=== PATIENT | male | born 1950 | race Caucasian/White ===

== ENCOUNTER → 2016-09-06 | Outpatient (CLI) | payer MEDICARE ==
[2016-09-06 07:52] LABS: Blood Urea Nitrogen 20 mg/dL (9-20); Non-African American GFR(MDRD) >60 (>60 ml/min/1.73 sqM)
--- NOTE | 2016-09-06 09:44 | CT ---
EXAMINATION TYPE: CT ChestAbdPelvis w con DATE OF EXAM: 09/06/2016 8:38 AM COMPARISON: Prior CT chest abdomen pelvis 22 September 2015 HISTORY: Follow up to colon CA CT DLP: 2457.1 mGycm Automated exposure control for dose reduction was used. CONTRAST: CT scan of the chest, abdomen and pelvis is performed with Oral Contrast and with IV Contrast, patien t injected with 100 ml mL of Omnipaque 300. FINDINGS: LUNGS: The lungs are grossly clear, there is no concerning parenchymal mass or nodule identified. T here is no pleural effusion or pneumothorax seen. The tracheobronchial tree is patent. MEDIASTINUM: There are no greater than 1 cm hilar or mediastinal lymph nodes. No pericardial effusi on is seen. Small hiatal hernia present. AORTA: No significant abnormality is seen. OTHER: Right-sided thyroid nodule is present. LIVER/GB: Liver shows low attenuation possibly due to fatty infiltration or hepatocellular disease. T he liver is enlarged. Gallbladder is unremarkable. PANCREAS: No significant abnormality is seen. SPLEEN: No significant abnormality is seen. ADRENALS: No significant abnormality is seen. KIDNEYS: Parapelvic cysts are present within the kidneys. REPRODUCTIVE ORGANS: There is a large hydrocele on the right. Prostate is enlarged. BOWEL: Postop changes are present within the pelvis. Retained fecal debris is present within the col on. No evident bowel obstruction. FREE AIR: No Free Air visible. ASCITES: None seen. RETROPERITONEAL ADENOPATHY: No retroperitoneal adenopathy is seen. LYMPH NODES: No greater than 1 cm abdominal or pelvic lymph nodes are appreciated. URINARY BLADDER: No significant abnormality is seen. PELVIC ADENOPATHY: None visualized. OSSEOUS STRUCTURES: No significant abnormality is seen. Postop change along the anterior abdominal w all. IMPRESSION: Postoperative changes. Recurrence is not evident. Additional findings above.
--- NOTE | 2016-09-06 09:50 | CT ---
EXAMINATION TYPE: CT soft tissue neck w con DATE OF EXAM: 09/06/2016 8:38 AM COMPARISON: Ultrasound thyroid 10 August 2016, prior CT 22 September 2015 HISTORY: Thyroid nodule, history of colon CA CT DLP: 2457.1 mGycm Automated exposure control for dose reduction was used. CONTRAST: CT scan of the neck is performed following with IV Contrast, patient injected with 100 ml mL of Omnip aque 300. Axial images are obtained, coronal and sagittal reformatted images are reviewed. FINDINGS: Airway: No gross abnormality seen. Parotid/submandibular glands: No gross abnormality seen. Carotid/Vascular Structures: Osseous Structures: Left maxillary sinus shows possible mucous retention cyst greater than right. Sku ll base is normal. Other: Heterogeneous posterior right lobe thyroid gland nodule is present measuring approximately 2.6 cm in greatest dimension, similar to prior exam. IMPRESSION: Right-sided thyroid nodule is dominant as described on previous report, difficult to ass ess any interval change with 2 different imaging modalities, findings felt stable compared to prior C T. Consider follow-up thyroid ultrasound.
== END | disposition home or self-care (01) ==
LOC: RADCTMAIN 07:20
PROVIDERS: ATTEND Internal Medicine Hematology & Oncology
DX: C18.9 Malignant neoplasm of colon, unspecified (principal); E04.1 Nontoxic single thyroid nodule; Z98.890 Other specified postprocedural states
CPT/HCPCS: 82565; 84520; 70491; 71260; 74177; 36415; Q9967

== ENCOUNTER 2017-11-06 07:45 | Day surgery (SDC) | payer MEDICARE ==
[~2017-11-06 07:45] MED LIST: LACTATED RINGERS 1,000 ML IV SCH; LIDOCAINE 1% 20 ML VIAL (10MG/ML) FOR IV START INTRADERMA PRN
[2017-11-06 08:16] VITALS: TEMP 98.2
[2017-11-06 08:21] LABS: Glucose,Whole Blood 155 mg/dL (75-99)
[2017-11-06] MEDS ORDERED: LIDOCAINE 1% INJ 10MG/ML (20 ML MDV) ONE (08:56)
[2017-11-06] MEDS ORDERED: PROPOFOL 10 MG/ML 20 ML VIAL IV ONE (08:56)
--- NOTE | 2017-11-06 09:25 | P.PCN ---
Date of Procedure: 11/06/17 Procedure(s) Performed: Procedure: Total colonoscopy. Preoperative diagnosis: History of rectal/lower sigmoid carcinoma S/P resection and adjuvant chemotherapy completed in 2007. Postoperative diagnosis: 1. Status post prior resection in the upper rectum/ lower sigmoid with no evidence of local recurrence or any evidence of polyps or cancer to the cecum. 2. Minimal sigmoid diverticulosis. Preparation: HalfLytely prep. Sedation: Was provided by anesthesia. Brief clinical history: The patient is a 67-year-old male who was diagnosed in 2006 to have low sigmoid/upper rectal cancer for which she underwent segmental resection which was followed with chemotherapy with the Xelox protocol that was completed in 2007. The patient at that time declined radiation adjuvant therapy. The patient has family history of colon cancer in his sister whose diagnosis was the reason that prompted him initially to have a colonoscopy while asymptomatic. His last colonoscopy was in July 2014. He is not having at this time any abdominal complaints, bleeding or anemia. Procedure: With the patient on his left lateral decubitus position and after informed consent and adequate sedation, the perianal area was inspected and it did not show any fissures or fistulas. There were no masses felt on digital rectal examination. The Olympus CFQ 160L video colonoscope was then inserted in the rectum in the usual fashion and advanced to the cecum. The preparation was less than ideal as there were some thick fecal secretions and fecal material and debris scattered in several areas. I lavaged thoroughly. The area of the anastomosis in the upper rectum/lower sigmoid area was noted and there was no local recurrence. There was an occasional diverticular orifice seen in the distal sigmoid as previously described but I saw no evidence of acute diverticulitis or strictures. No polyps or tumors were seen. I retroflexed the endoscope in the rectum before the endoscope was withdrawn. Disposition: The patient tolerated the procedure well. Plan: The patient was reassured. I will recommend repeat exam in 3 years. He will follow up with you as planned.
[2017-11-06 09:46] VITALS: BP 147/74; PULSE 68; RESP 20
== END 2017-11-06 10:04 | disposition home or self-care (01) ==
LOC: ORWHC2ENDO 07:45
DX: Z12.11 Encounter for screening for malignant neoplasm of colon (principal); K57.30 Diverticulosis of large intestine without perforation or abscess without bleeding; Z85.038 Personal history of other malignant neoplasm of large intestine; Z98.0 Intestinal bypass and anastomosis status; Z80.0 Family history of malignant neoplasm of digestive organs; E11.9 Type 2 diabetes mellitus without complications; Z79.84 Long term (current) use of oral hypoglycemic drugs
CPT/HCPCS: J2001; J2704; G0105; 45378

== ENCOUNTER → 2019-07-22 | Outpatient (CLI) | payer MEDICARE ==
[2019-07-22 16:35] LABS: Anisocytosis Slight; HCT 42.7 % (39.0-53.0); HGB 13.5 gm/dL (13.0-17.5); MCH 24.3 pg (25.0-35.0); MCHC 31.5 g/dL (31.0-37.0); MCV 77.1 fL (80.0-100.0); Mean Platelet Volume 8.9; Microcytosis Slight; Platelet Count 196 k/uL (150-450); RBC 5.54 m/uL (4.30-5.90); RDW 16.1 % (11.5-15.5); WBC 6.4 k/uL (3.8-10.6)
[2019-07-22 16:54] LABS: ALT 20 U/L (21-72); AST 17 U/L (17-59); African American GFR (CKD) >90 (>60 ml/min/1.73 sqM); Anion Gap 8 mmol/L; Blood Urea Nitrogen 21 mg/dL (9-20); Calcium 9.3 mg/dL (8.4-10.2); Carbon Dioxide 27 mmol/L (22-30); Chloride 104 mmol/L (98-107); Glucose 145 mg/dL (74-99); Non-African American GFR(CKD) >90 (>60 ml/min/1.73 sqM); Sodium 139 mmol/L (137-145)
[2019-07-22 17:09] LABS: T4, Free (Free Thyroxine) 1.08 ng/dL (0.78-2.19)
[2019-07-23 02:00] LABS: % Iron Saturation 5.43 (15.00-50.00); Ferritin 10.1 ng/mL (22.0-322.0); Iron 22 ug/dL (65-175); Total Iron Binding Capacity 405 ug/dL (228-460)
--- NOTE | 2019-07-23 11:18 | US ---
EXAMINATION TYPE: US scrotum with doppler. Grayscale and color Doppler Duplex imaging performed of kevin campos scrotum. DATE OF EXAM: 07/22/2019 COMPARISON: US CLINICAL HISTORY: N50.89 OTHER SPECIFIED DISORDERS OF THE MALE GENITAL. Enlarged scrotum x years per patient. EXAM MEASUREMENTS: TESTICLES: Right Testicle: 5.3 x 2.4 x 2.2 cm Left Testicle: 4.0 x 1.8 x 2.3 cm, located extreme left lateral scrotal sac near inguina. EPIDIDYMIS HEAD: Right Epididymis: not seen in enlarged hydrocele Left Epididymis: 0.7 x 1.0 x 0.8 cm Doppler was performed to assess for testicular vascularity; good bilateral color flow and waveforms a re seen. There is no evidence of testicular torsion. Presence of hydroceles: noted in right scrotal sac with mobile internal echoes and size approximatel y = 14.1 x 10.4 x 7.6cm Left hydrocele imaged = 6.0 x 1.1 x 1.9cm. Exophytic epididymal head cyst imaged = 0.5 x 0.6 x 0.6cm. IMPRESSION: 1. Complex large right hydrocele measuring up to 14.1 cm with mass effect on the testicle. 2. Benign left epididymal head cyst and small left uncomplicated hydrocele.
--- NOTE | 2019-07-23 12:46 | US ---
EXAMINATION TYPE: US thyroid st tissue head/neck DATE OF EXAM: 07/22/2019 COMPARISON: US 08/10/2016 CLINICAL HISTORY: E04.1 NONTOXIC SINGLE THYROID NODE. GLAND SIZE: Right Lobe: 4.9 x 3.1 x 2.9 cm Overall Parenchyma: heterogenous Left Lobe: 5.6 x 2.0 x 1.8 cm Overall Parenchyma: heterogeneous Isthmus Thickness: 0.2 cm NODULES RIGHT: # of nodules measured on right: 2 largest of multiple 1. 2.7 X 2.0 x 1.7 cm hypoechoic solid nodule at the lower pole with well-defined margins. This no dule is wider than tall and shows intranodular vascularity. Prior size: 2.0 x 1.7 x 1.6 cm 2. 1.9 X 1.4 x 1.2 cm hypoechoic mixed nodule at the lower medial pole with well-defined margins. T his nodule is wider than tall and shows intranodular vascularity. Prior size: 1.2 x 1.1 x 1.2 cm LEFT: # of nodules measured on left: 1 distinct nodule in heterogeneous gland 1. 0.5 X 0.6 x 0.4 cm hypoechoic mixed nodule at the mid pole with well-defined margins. This nodu le is wider than tall and shows no intranodular vascularity. Prior size: 0.8 x 0.4 x 0.9 cm ISTHMUS: # of nodules measured in the isthmus: 0 Bilateral neck scanned: no evidence of lymphadenopathy. IMPRESSION: 1. Interval growth of the dominant nodule 2.7 cm right thyroid nodule and interval growth the second nonone 0.9 cm thyroid nodule. Fine-needle aspiration could be considered if not previously performed. 2. No interval growth of the left thyroid subcentimeter nodule.
== END | disposition home or self-care (01) ==
LOC: RADUSWWP 14:58
PROVIDERS: ATTEND Family Medicine
DX: E04.2 Nontoxic multinodular goiter (principal); N43.3 Hydrocele, unspecified; N50.3 Cyst of epididymis; E11.65 Type 2 diabetes mellitus with hyperglycemia; D64.9 Anemia, unspecified; E55.9 Vitamin D deficiency, unspecified
CPT/HCPCS: 36415; 76536; 76870; 80048; 82306; 82728; 83036; 83540; 83550; 84439; 84443; 84450; 84460; 85027; 93975

== ENCOUNTER 2019-08-12 07:11 | Day surgery (SDC) | payer MEDICARE ==
[2019-08-08 13:07] VITALS: BMI 32.9
[2019-08-12 07:31] VITALS: RESP 16; TEMP 98.6
[2019-08-12 07:45] LABS: Glucose,Whole Blood 92 mg/dL (75-99)
[2019-08-12] MEDS ORDERED: PROPOFOL 10 MG/ML 20 ML VIAL IV ONE (07:51)
[2019-08-12] MEDS ORDERED: LIDOCAINE 1% INJ 10MG/ML (20 ML MDV) ONE (07:51)
--- NOTE | 2019-08-12 08:39 | P.PCN ---
Preoperative Diagnosis: Description of Procedure: Brief history: Patient is a pleasant scheduled for an elective upper endoscopy as well as colonoscopy as a part of evaluation of iron deficiency anemia and rectal cancer. The patient was diagnosed in 2006 with a cancer of the rectosigmoid which he subsequently underwent segmental resection and chemotherapy in 2007. Patient declined radiation therapy at that time. Patient does have a family history of colon cancer in his sister. Patient currently denying any acute complaints. He has been followed up for anemia. Procedure performed: Esophagogastroduodenoscopy biopsy and polypectomy with Endo Clip placement Colonoscopy Estimated blood loss: Minimal. Preoperative diagnosis: Iron deficiency anemia, rectal cancer, last colonoscopy in 2018 Anesthesia: MAC Procedure: After informed consent was obtained from the patient was brought into the endoscopy unit and IV sedation was administered by anesthesia under continuous monitoring. Initially upper endoscopy was done. The Olympus GF 190 video endoscope was inserted into the mouth and esophagus intubated without any difficulty and was gradually advanced into the stomach and duodenum and carefully examined. The bulb and second part of the duodenum appeared normal, with biopsies taken. The scope was then withdrawn into the stomach adequately insufflated with air and upon careful examination the antrum and body, cardia and fundus appeared grossly normal except for some mild punctate erythema in the antrum and body suggestive of mild gastritis with biopsies taken. There was also a pedunculated 15 mm polyp in the body of the stomach on the lesser curvature. Polyp was resected with cold snare and retrieved with a King net, with 2 Endo clips placed for hemostasis. The scope was then withdrawn into the esophagus. The GE junction was located at 38 cm to the incisors. It appeared regular with no erythema erosions or ulcerations. Rest of the esophagus appeared normal. Patient tolerated the procedure well. At this time the patient continued to remain sedation. Initial digital rectal examination was normal. Olympus CF 190 video colonoscope was then inserted into the rectum and gradually advanced to the cecum without any difficulty. Careful examination was performed as the scope was gradually being withdrawn. The prep was excellent. The cecum, ascending colon, transverse colon, descending colon, rectum appeared normal, with previously noted segmental resection of the rectosigmoid junction without any recurrence of disease. Mild sigmoid diverticulosis noted. Retroflexion was performed in the rectum and no lesions were noted. Patient tolerated the procedure well. Impression: 1. Mild gastritis antrum and body, biopsied. Duodenal biopsies. Gastric polyp resected with cold snare and retrieved with King net, with Endo Clip placement. 2. Normal-appearing colon, with anastomotic site from previous segmental resection of the rectosigmoid at the site of malignancy appearing normal with no recurrence at the site. Mild sigmoid diverticulosis. Recommendations: Findings of this examination were discussed with the patient as well as his family. Okay to resume diet. Okay to resume medication. Await pathology from biopsies and polypectomy. Recommend repeat colonoscopy in 3 years.
[2019-08-12 08:52] VITALS: BP 141/74; PULSE 66
== END 2019-08-12 09:20 | disposition home or self-care (01) ==
LOC: ORWHC2ENDO 07:11
PROVIDERS: ATTEND Internal Medicine
DX: K29.50 Unspecified chronic gastritis without bleeding (principal); A04.8 Other specified bacterial intestinal infections; K31.7 Polyp of stomach and duodenum; K25.9 Gastric ulcer, unspecified as acute or chronic, without hemorrhage or perforation; K57.30 Diverticulosis of large intestine without perforation or abscess without bleeding; D50.9 Iron deficiency anemia, unspecified; E11.9 Type 2 diabetes mellitus without complications; E04.9 Nontoxic goiter, unspecified; E66.9 Obesity, unspecified; Z68.32 Body mass index [BMI] 32.0-32.9, adult; Z85.048 Personal history of other malignant neoplasm of rectum, rectosigmoid junction, and anus; Z92.21 Personal history of antineoplastic chemotherapy; Z97.2 Presence of dental prosthetic device (complete) (partial); Z79.84 Long term (current) use of oral hypoglycemic drugs; Z79.899 Other long term (current) drug therapy; Z98.890 Other specified postprocedural states; Z98.42 Cataract extraction status, left eye; Z98.41 Cataract extraction status, right eye; Z98.0 Intestinal bypass and anastomosis status; Z80.0 Family history of malignant neoplasm of digestive organs
CPT/HCPCS: 88305; 88342; 45378; 43239; 43251; J2001; J2704; 43255

== ENCOUNTER 2019-08-22 12:18 | Day surgery (SDC) | payer MEDICARE ==
[2019-08-22 12:47] LABS: Glucose,Whole Blood 165 mg/dL (75-99)
[2019-08-22 12:57] VITALS: RESP 16; TEMP 98
[2019-08-22 14:12] VITALS: BP 116/76; PULSE 76
--- NOTE | 2019-08-22 14:17 | US ---
ULTRASOUND GUIDED FNA THYROID BIOPSY: CLINICAL HISTORY: Request for 2 right-sided thyroid nodule biopsies FINDINGS: The procedure was explained to the patient. The risks, complications, benefits and alternatives were discussed and any questions were answered. Informed consent was obtained. Patient was placed supin e on the ultrasound table and prepped and draped in the usual sterile fashion. Utilizing a 25 gauge needle, five passes were made into the two requested right thyroid nodules. Patient was stable throughout the procedure. Pathology is pending. All elements of maximal barrier technique were utilized. IMPRESSION: 1. Successful ultrasound guided FNA thyroid biopsy.
== END 2019-08-22 14:05 | disposition home or self-care (01) ==
LOC: RADPROMAIN 12:18
PROVIDERS: ATTEND Surgery
DX: E04.2 Nontoxic multinodular goiter (principal)
CPT/HCPCS: 10005; 10006; 88173; 88305

== ENCOUNTER → 2019-09-09 | Outpatient (CLI) | payer MEDICARE ==
[2019-09-09 13:26] LABS: African American GFR (CKD) >90 (>60 ml/min/1.73 sqM); Blood Urea Nitrogen 24 mg/dL (9-20); Non-African American GFR(CKD) >90 (>60 ml/min/1.73 sqM)
--- NOTE | 2019-09-09 15:18 | CT ---
EXAMINATION TYPE: CT pelvis w con DATE OF EXAM: 09/09/2019 COMPARISON: 09/06/2016 HISTORY: Right hydrocele. CT DLP: 988 mGycm CONTRAST: CT scan of the pelvis is performed with Oral Contrast and with IV Contrast, patient injected with 100 mL of Isovue M300. FINDINGS: KIDNEYS/BLADDER: Visualized portions of the kidneys reveal No hydronephrosis. No nephrolithiasis. No distinct renal mass. Urinary bladder grossly unremarkable. BOWEL: Normal appendix. Normal bowel caliber. No inflammation. GENITAL ORGANS: Large right-sided hydrocele noted measuring 11.5 x 11.8 x 13.8 cm. LYMPH NODES: No greater than 1cm pelvic lymph nodes are appreciated. AORTA: No significant abnormality. OSSEOUS STRUCTURES: No significant abnormality is seen. OTHER: No significant additional abnormality is seen. IMPRESSION: 1. Large right-sided hydrocele noted.
== END | disposition home or self-care (01) ==
LOC: RADCTMAIN 12:02
PROVIDERS: ATTEND Urology
DX: N43.3 Hydrocele, unspecified (principal)
CPT/HCPCS: 82565; 84520; 72193; 36415; Q9967 ×2

== ENCOUNTER → 2019-09-19 | Outpatient (CLI) | payer MEDICARE ==
[2019-09-19 13:52] LABS: Basophils # (A) 0.1 k/uL (0-0.2); Basophils % (A) 1 %; Eosinophils # (A) 0.2 k/uL (0-0.7); Eosinophils % (A) 4 %; HCT 44.1 % (39.0-53.0); HGB 13.7 gm/dL (13.0-17.5); Lymphocytes # (A) 1.6 k/uL (1.0-4.8); Lymphocytes % (A) 23 %; MCH 24.8 pg (25.0-35.0); Mean Platelet Volume 8.7; Monocytes # (A) 0.3 k/uL (0-1.0); Monocytes % (A) 4 %; Neutrophils # (A) 4.4 k/uL (1.3-7.7); Neutrophils % (A) 66 %; Platelet Count 219 k/uL (150-450); RBC 5.51 m/uL (4.30-5.90); RDW 14.8 % (11.5-15.5); WBC 6.7 k/uL (3.8-10.6)
[2019-09-19 14:00] LABS: African American GFR (CKD) >90 (>60 ml/min/1.73 sqM); Anion Gap 6 mmol/L; Blood Urea Nitrogen 19 mg/dL (9-20); Carbon Dioxide 31 mmol/L (22-30); Chloride 101 mmol/L (98-107); Non-African American GFR(CKD) 88 (>60 ml/min/1.73 sqM); Potassium 4.3 mmol/L (3.5-5.1); Sodium 138 mmol/L (137-145)
== END | disposition home or self-care (01) ==
LOC: LABPAT 12:37
PROVIDERS: ATTEND Urology
DX: Z01.818 Encounter for other preprocedural examination (principal); E10.9 Type 1 diabetes mellitus without complications; N43.3 Hydrocele, unspecified; R53.83 Other fatigue
CPT/HCPCS: 36415; 80051; 82565; 84520; 85025; 93005

== ENCOUNTER 2019-10-01 08:47 | Day surgery (SDC) | payer MEDICARE ==
[2019-09-26 15:03] VITALS: BMI 32.4
--- NOTE | 2019-09-30 20:31 | P.GSHP ---
History of Present Illness H&P Date: 09/30/19 69 yo male with a very large uncomfortable hydrocele for several years He comes for a surgical repair.He had a ct scan showing no evidence of hernia and a normal testicle The risks and complications have been discussed including infection bleeding loss of testicle pain and swelling - Constitutional Constitutional: Denies chills, Denies fever - EENT Eyes: denies blurred vision, denies pain Ears, nose, mouth and throat: Denies headache, Denies sore throat - Cardiovascular Cardiovascular: Denies chest pain, Denies shortness of breath - Respiratory Respiratory: Denies cough, Denies 7 - Gastrointestinal Gastrointestinal: Denies abdominal pain, Denies diarrhea, Denies nausea, Denies vomiting - Genitourinary (Female) Genitourinary: Denies dysuria, Denies hematuria - Genitourinary (Male) Genitourinary: Denies dysuria, Denies hematuria - Musculoskeletal Musculoskeletal: Denies myalgias - Integumentary Integumentary: Denies pruritus, Denies rash - Neurological Neurological: Denies numbness, Denies weakness - Psychiatric Psychiatric: Denies anxiety, Denies depression - Endocrine Endocrine: Denies fatigue, Denies weight change Past Medical History Past Medical History: Blood Disorder, Cancer, Diabetes Mellitus, Thyroid Disorder Additional Past Medical History / Comment(s): COLON CANCER. Low Iron. Enlarged thyroid. History of Any Multi-Drug Resistant Organisms: None Reported Past Surgical History: Bowel Resection, Hernia Repair Additional Past Surgical History / Comment(s): SURGERY TO REMOVE COLON CANCER. COLONOSCOPY. BILAT CATARACT SX; Umb Hernia Past Anesthesia/Blood Transfusion Reactions: No Reported Reaction Smoking Status: Never smoker - Past Family History Sister(s) Family Medical History: Cancer Medications and Allergies Home Medications Medication Instructions Recorded Confirmed Type Empagliflozin [Jardiance] 25 mg PO QAM 08/08/19 09/26/19 History Ferrous Sulfate [Feosol] 325 mg PO DAILY 08/08/19 09/26/19 History metFORMIN HCL [metFORMIN HCL ER 1,000 mg PO HS 08/08/19 09/26/19 History Osmotic] Allergies Allergy/AdvReac Type Severity Reaction Status Date / Time No Known Allergies Allergy Verified 09/26/19 14:55 Surgical - Exam - General well developed, well nourished, no distress - Eyes PERRL - ENT no hearing loss - Neck trachea midline - Respiratory normal expansion, normal respiratory effort - Cardiovascular Rhythm: regular - Abdomen Abdomen: soft, non tender - Genitourinary nl penis large left hydrocele Assessment and Plan Assessment: Impression: Left hydrocele, large Plan; Left hydrocelectomy
[~2019-10-01 08:47] MED LIST changes: +DEXAMETHASONE SOD PHOSPHATE 10 MG/ML 1 ML VIAL IV ONE; +HYDROmorphone 0.5 MG/0.5 ML SYRINGE IVP PRN; +LIDOCAINE 1% (10MG/ML) FOR IV START INTRADERMA PRN; -LIDOCAINE 1% 20 ML VIAL (10MG/ML) FOR IV START INTRADERMA PRN; +MIDAZOLAM 2 MG/2 ML VIAL IV PRN; +ONDANSETRON 4 MG/2 ML VIAL IVP ONE; +SCOPOLAMINE 1.5MG/72HR PATCH TRANSDERM ONE
[2019-10-01 09:50] LABS: Glucose,Whole Blood 147 mg/dL (75-99)
[2019-10-01 09:54] VITALS: TEMP 97.6
[2019-10-01] MEDS ORDERED: fentaNYL (PF) 50 MCG/ML 2 ML AMP ONE (10:08)
[2019-10-01] MEDS ORDERED: MIDAZOLAM 2 MG/2 ML VIAL ONE (10:08)
[2019-10-01] MEDS ORDERED: LIDOCAINE 1% INJ 10MG/ML (20 ML MDV) ONE (10:08)
[2019-10-01] MEDS ORDERED: PROPOFOL 10 MG/ML 20 ML VIAL IV ONE (10:08)
[2019-10-01] MEDS ORDERED: SUCCINYLCHOLINE CHLORIDE 100 MG/5 ML SYR IV ONE (10:08)
[2019-10-01] MEDS ORDERED: BUPIVACAINE (PF) 0.5% 30 ML VIAL SQ ONE (10:32)
--- NOTE | 2019-10-01 11:00 | P.OP ---
Date of Procedure: 10/01/19 Preoperative Diagnosis: Right hydrocele, large Postoperative Diagnosis: Same Procedure(s) Performed: Right hydrocelectomy, bottleneck Anesthesia: BRITTANY Surgeon: Dexter Fowler Pathology: other (Hydrocele sac) Condition: stable Disposition: PACU Indications for Procedure: The patient is 69. He has had a large right hydrocele for many years. Computed tomography scan shows no evidence of hernia. The testicles normal. He comes for right hydrocelectomy Description of Procedure: Patient is brought to the operating suite. He is given a general endotracheal anesthesia. He is prepped and draped sterilely. A midline scrotal incision is made. I dissect down through the tunica vaginalis which is opened. 800 mL of clear straw-colored fluid is drained. I evaginated the testicle out of the wound. I excised redundant hydrocele sac. I then oversew the edges of the hydrocele sac with a running 3-0 chromic. The testicle remained viable at the end of the procedure. The testicles replaced into the scrotum. Scrotum was closed in 2 layers of 3-0 chromic. Then of procedure 10 mL of half percent Marcaine plain block is administered. The patient awake and returned recovery in good condition. Blood loss is approximately 10 mL. He tolerated rate of the procedure well be discharged home upon recovery. He'll follow in the office in one week.
[2019-10-01 11:54] VITALS: RESP 18
[2019-10-01 12:08] VITALS: BP 130/72; PULSE 77
== END 2019-10-01 12:41 | disposition home or self-care (01) ==
LOC: OR 08:47
PROVIDERS: ATTEND Urology
DX: N43.3 Hydrocele, unspecified (principal); E11.9 Type 2 diabetes mellitus without complications; E04.9 Nontoxic goiter, unspecified; D75.9 Disease of blood and blood-forming organs, unspecified; Z79.84 Long term (current) use of oral hypoglycemic drugs; Z79.899 Other long term (current) drug therapy; Z85.038 Personal history of other malignant neoplasm of large intestine; Z90.49 Acquired absence of other specified parts of digestive tract; Z98.41 Cataract extraction status, right eye; Z98.42 Cataract extraction status, left eye; Z98.890 Other specified postprocedural states; Z80.9 Family history of malignant neoplasm, unspecified
CPT/HCPCS: 88302; 55040; J2250; J1100; J2405; J2001; J3010; J0330; J2704

== ENCOUNTER → 2020-04-01 | Outpatient (CLI) | payer MEDICARE ==
[2020-04-01 12:23] LABS: Basophils # (A) 0.1 k/uL (0-0.2); Basophils % (A) 1 %; Eosinophils # (A) 0.2 k/uL (0-0.7); Eosinophils % (A) 2 %; HCT 47.3 % (39.0-53.0); HGB 14.7 gm/dL (13.0-17.5); Lymphocytes # (A) 1.5 k/uL (1.0-4.8); Lymphocytes % (A) 22 %; MCH 26.4 pg (25.0-35.0); MCHC 31.1 g/dL (31.0-37.0); MCV 84.8 fL (80.0-100.0); Mean Platelet Volume 9.1; Monocytes # (A) 0.3 k/uL (0-1.0); Monocytes % (A) 5 %; Neutrophils # (A) 4.7 k/uL (1.3-7.7); Neutrophils % (A) 69 %; Platelet Count 168 k/uL (150-450); RBC 5.58 m/uL (4.30-5.90); RDW 14.1 % (11.5-15.5); WBC 6.9 k/uL (3.8-10.6)
[2020-04-01 18:39] LABS: % Iron Saturation 20.31 (15.00-50.00); Chol/HDL Ratio 2.62; LDL Cholesterol,Calculated 75.2 mg/dL (0.0-131.0); VLDL Calculation 26.8 mg/dL (5.00-40.00)
[2020-04-01 18:48] LABS: Prostate Specific Antigen 0.9 ng/mL (0.0-4.5)
[2020-04-01 19:40] LABS: Ferritin 8.1 ng/mL (22.0-322.0)
== END | disposition home or self-care (01) ==
LOC: LABWHC1 09:51
PROVIDERS: ATTEND Family Medicine
DX: Z00.01 Encounter for general adult medical examination with abnormal findings (principal)
CPT/HCPCS: 36415; 80061; 82306; 82728; 83540; 83550; 84153; 85025

== ENCOUNTER → 2022-01-13 | Outpatient (CLI) | payer MEDICARE ==
--- NOTE | 2022-01-13 14:38 | US ---
EXAMINATION TYPE: US thyroid st tissue head/neck DATE OF EXAM: 01/13/2022 COMPARISON: NONE CLINICAL HISTORY: E04.1 THYROID NODULE. follow up thyroid nodules GLAND SIZE: Right Lobe: 5.7 x 2.6 x 2.3 cm Overall Parenchyma: heterogenous Left Lobe: 6.0 x 2.2 x 2.2 cm Overall Parenchyma: heterogeneous Isthmus Thickness: 0.3 cm NODULES RIGHT: # of nodules measured on right: 2 1. 2.5 X 1.9 x 2.0 cm, lower , solid or almost completely solid, hypoechoic nodule, which is wider than tall, with smooth margins, without echogenic foci. TR 4 Prior size: 2.7 x 2.0 x 1.7 cm 2. 1.3 X 1.2 x 1.2 cm, lower , solid or almost completely solid, isoechoic nodule, which is wider t jackson tall, with smooth margins, without echogenic foci. Prior size: 1.9 x 1.4 x 1.2 cm LEFT: # of nodules measured on left: 1 1. 0.6 X 0.4 x 0.9 cm, mid , mixed cystic and solid, hypoechoic nodule, which is wider than tall, w ith smooth margins, without echogenic foci. Prior size: 0.5 x 0.6 x 0.4 cm ISTHMUS: # of nodules measured in the isthmus: 0 IMPRESSION: Moderately suspicious nodule right lobe thyroid. This appears to been biopsied 08/22/2019. 2017 ACR TI-RADS LEVEL: *Highest TI-RADS level nodule reported
== END | disposition home or self-care (01) ==
LOC: RADUSWWP 13:35
PROVIDERS: ATTEND Internal Medicine Hematology & Oncology
DX: E04.1 Nontoxic single thyroid nodule (principal)
CPT/HCPCS: 76536

== ENCOUNTER 2022-01-17 07:31 | Day surgery (SDC) | payer MEDICARE ==
[2022-01-13 11:34] VITALS: BMI 33.8
[~2022-01-17 07:31] MED LIST changes: -DEXAMETHASONE SOD PHOSPHATE 10 MG/ML 1 ML VIAL IV ONE; -HYDROmorphone 0.5 MG/0.5 ML SYRINGE IVP PRN; -MIDAZOLAM 2 MG/2 ML VIAL IV PRN; -ONDANSETRON 4 MG/2 ML VIAL IVP ONE; -SCOPOLAMINE 1.5MG/72HR PATCH TRANSDERM ONE
[2022-01-17 08:05] VITALS: TEMP 97.4
[2022-01-17 08:14] LABS: Glucose,Whole Blood 123 mg/dL (75-99)
[2022-01-17] MEDS ORDERED: PROPOFOL 10 MG/ML 20 ML VIAL IV ONE (08:33)
--- NOTE | 2022-01-17 08:50 | P.GSHP ---
History of Present Illness H&P Date: 01/17/22 Chief Complaint: HISTORY OF RECTAL CANCER, SCREENING 71-year-old male here today for colonoscopy. Patient with history of rectal cancer in 2006. Doing well this time. No bowel complaints. He is unsure when his last colonoscopy was. Past Medical History Past Medical History: Blood Disorder, Cancer, Diabetes Mellitus, Thyroid Disorder Additional Past Medical History / Comment(s): HX COLON CANCER, 17 yrs ago. Low Iron. Enlarged thyroid. History of Any Multi-Drug Resistant Organisms: None Reported Past Surgical History: Bowel Resection, Hernia Repair Additional Past Surgical History / Comment(s): SURGERY TO REMOVE COLON CANCER, COLONOSCOPIES, BILATERAL CATARACT SURGERY, Umbilical Hernia Repair. Past Anesthesia/Blood Transfusion Reactions: No Reported Reaction Past Psychological History: No Psychological Hx Reported Smoking Status: Never smoker Past Alcohol Use History: Occasional Past Drug Use History: None Reported - Past Family History Sister(s) Family Medical History: Cancer Medications and Allergies Home Medications Medication Instructions Recorded Confirmed Type Empagliflozin [Jardiance] 10 mg PO DAILY 01/13/22 01/17/22 History metFORMIN HCL [Glucophage] 500 mg PO BID 01/13/22 01/17/22 History Allergies Allergy/AdvReac Type Severity Reaction Status Date / Time No Known Allergies Allergy Verified 01/17/22 08:05 Surgical - Exam Vital Signs Temp Pulse Resp BP Pulse Ox 97.4 F L 69 18 168/77 97 01/17/22 08:04 01/17/22 08:04 01/17/22 08:04 01/17/22 08:04 01/17/22 08:04 Physical exam: General: Well-developed, well-nourished HEENT: Normocephalic, sclerae nonicteric Abdomen: Nontender, nondistended Extremities: No edema Neuro: Alert and oriented Results - Labs Abnormal Lab Results - Last 24 Hours (Table) 01/17/22 Range/Units 08:12 POC Glucose (mg/dL) 123 H (75-99) mg/dL Assessment and Plan (1) Colon cancer screening Narrative/Plan: 71-year-old male with history of rectal cancer. We'll proceed with screening colonoscopy at this time. Current Visit: Yes Status: Acute Code(s): Z12.11 - ENCOUNTER FOR SCREENING FOR MALIGNANT NEOPLASM OF COLON SNOMED Code(s): 900902716
--- NOTE | 2022-01-17 08:51 | P.PCN ---
Date of Procedure: 01/17/22 Procedure(s) Performed: PREOPERATIVE DIAGNOSIS: Colon cancer screening with history of rectal cancer POSTOPERATIVE DIAGNOSIS: Normal exam PROCEDURE: Colonoscopy ANESTHESIA: MAC SURGEON: Beni Hussein M.D. SPECIMENS: None ENDOSCOPIC PROCEDURE: The patient was placed on the endoscopy table in the left decubitus position. The Olympus colonoscope was inserted into the anus and passed under direct visualization to the base of the cecum. The appendiceal orifice was visualized. From that point the scope was slowly withdrawn inspecting all surfaces carefully. There were no neoplastic inflammatory or polypoid lesions throughout the cecum, ascending, transverse, descending, and rectum. The coloproctostomy was widely patent. There was noted diverticulosis seen. The prep was excellent. Digital rectal examination was normal. The patient was taken to the recovery room in stable condition per anesthesia guidelines. RECOMMENDATIONS: Resume diet. Repeat colonoscopy 5 years.
[2022-01-17 09:12] VITALS: BP 155/63; PULSE 57; RESP 17
[2022-01-17 09:30] LABS: Glucose,Whole Blood 118 mg/dL (75-99)
== END 2022-01-17 09:45 | disposition home or self-care (01) ==
LOC: ORWHC2ENDO 07:31
PROVIDERS: ATTEND Surgery
DX: Z85.048 Personal history of other malignant neoplasm of rectum, rectosigmoid junction, and anus (principal); K57.30 Diverticulosis of large intestine without perforation or abscess without bleeding; E11.9 Type 2 diabetes mellitus without complications; Z79.84 Long term (current) use of oral hypoglycemic drugs
CPT/HCPCS: 45378; J2704

== ENCOUNTER → 2022-07-05 | Outpatient (CLI) | payer MEDICARE ==
[2022-07-05 15:57] LABS: Basophils # (A) 0.07 X 10*3/uL (0.00-0.10); Basophils % (A) 1.3 %; Eosinophils # (A) 0.17 X 10*3/uL (0.04-0.35); Eosinophils % (A) 3.3 %; HCT 46.9 % (39.6-50.0); HGB 15.3 g/dL (13.0-17.0); Immature Grans, Automated 0.2 %; Lymphocytes # (A) 1.66 X 10*3/uL (0.90-5.00); Lymphocytes % (A) 31.8 %; MCH 27.1 pg (27.0-32.0); MCHC 32.6 g/dL (32.0-37.0); Mean Platelet Volume 12.2 fL (9.5-12.2); Monocytes % (A) 7.7 %; NRBC Per 100 WBC 0 /100 WBCS (0.0-0.0); Neutrophils # (A) 2.91 X 10*3/uL (1.80-7.70); Neutrophils % (A) 55.7 %; Platelet Count 175 X 10*3/uL (140-440); RBC 5.65 X 10*6/uL (4.40-5.60); RDW 13.2 % (11.5-14.5); WBC 5.22 X 10*3/uL (4.50-10.00)
[2022-07-05 18:25] LABS: ALT 24 U/L (10-49); AST 28 U/L (14-35); African American GFR (CKD) 101.7 (60.0-200.0); BUN/Creat Ratio 20.85 Ratio (12.00-20.00); Blood Urea Nitrogen 17.7 mg/dL (9.0-27.0); Calcium 9.3 mg/dL (8.7-10.3); Carbon Dioxide 26.1 mmol/L (20.0-27.5); Chloride 103 mmol/L (96-109); Chol/HDL Ratio 2.64 Ratio; Glucose 140 mg/dL (70-110); Iron 89 ug/dL (65-175); LDL Cholesterol,Calculated 86.3 mg/dL (0.0-131.0); Non-African American GFR(CKD) 87.7 (60.0-200.0); Potassium 4.1 mmol/L (3.5-5.5); Sodium 141 mmol/L (135-145)
== END | disposition home or self-care (01) ==
LOC: LABWHC1 11:12
PROVIDERS: ATTEND Family Medicine
DX: E11.65 Type 2 diabetes mellitus with hyperglycemia (principal); D64.9 Anemia, unspecified; E55.9 Vitamin D deficiency, unspecified
CPT/HCPCS: 36415; 80048; 80061; 82306; 83036; 83540; 84450; 84460; 85025

== ENCOUNTER → 2023-02-02 | Outpatient (CLI) | payer MEDICARE ==
[2023-02-02 15:49] LABS: Basophils # (A) 0.06 X 10*3/uL (0.00-0.10); Basophils % (A) 1.4 %; Eosinophils # (A) 0.15 X 10*3/uL (0.04-0.35); Eosinophils % (A) 3.5 %; HCT 47.7 % (39.6-50.0); HGB 15.3 d/dL (12.0-15.0); Lymphocytes # (A) 1.44 X 10*3/uL (0.90-5.00); Lymphocytes % (A) 33.8 %; MCH 27.2 pg (27.0-32.0); MCHC 32.1 d/dL (32.0-37.0); MCV 84.9 FL (80.0-97.0); Mean Platelet Volume 12.4 FL (9.5-12.2); Monocytes # (A) 0.34 X 10*3/uL (0.20-1.00); NRBC Per 100 WBC 0 X 10*3/uL (0.00-0.01); Neutrophils # (A) 2.26 X 10*3/uL (1.80-7.70); Neutrophils % (A) 53.1 %; Platelet Count 159 X 10*3/uL (140-440); RBC 5.62 X 10*6/uL (4.40-5.60); RDW 13.7 % (11.5-14.5); WBC 4.26 X 10*3/uL (4.50-10.00)
[2023-02-02 15:56] LABS: ALT 20 U/L (10-49); AST 17 U/L (14-35); Albumin 4.5 d/dL (3.8-4.9); Albumin/Globulin Ratio 1.96 Ratio (1.60-3.17); Alkaline Phosphatase 58 U/L (41-126); Blood Urea Nitrogen 16.4 mg/dL (9.0-27.0); Calcium 9.4 mg/dL (8.7-10.3); Carbon Dioxide 26.3 mmol/L (21.6-31.8); Chloride 103 mmol/L (96-109); Chol/HDL Ratio 2.47 Ratio; Globulin 2.3 d/dL (1.6-3.3); Glucose 131 mg/dL (70-110); LDL Cholesterol,Calculated 76.7 mg/dL (0.0-131.0); Potassium 4.3 mmol/L (3.5-5.5); Sodium 142 mmol/L (135-145); Total Bilirubin 0.5 mg/dL (0.3-1.2); Total Protein 6.8 d/dL (6.2-8.2); VLDL Calculation 18.02 mg/dL (5.00-40.00)
[2023-02-02 16:19] LABS: Appearance,Urine Clear (Clear); Bilirubin,Urine Negative (Negative); Blood,Urine Negative (Negative); Color,Urine Yellow (Yellow); Ketones,Urine Trace (Negative); Nitrite,Urine Negative (Negative); Specific Gravity,Urine >1.035 (1.001-1.030); Urobilinogen,Urine 0.2
[2023-02-02 18:31] LABS: Urine Creatinine 94.2 mg/dL (39.0-259.0)
== END | disposition home or self-care (01) ==
LOC: LABWHC1 08:45
PROVIDERS: ATTEND Family Medicine
DX: Z12.5 Encounter for screening for malignant neoplasm of prostate (principal); E11.65 Type 2 diabetes mellitus with hyperglycemia; E55.9 Vitamin D deficiency, unspecified; D64.9 Anemia, unspecified
CPT/HCPCS: 80061; 80053; 85025; 81003; 82306; 82043; 82570; 83036; 36415; G0103

== ENCOUNTER 2023-12-16 14:53 | Emergency (ER) | payer MEDICARE ==
[2023-12-16 15:06] VITALS: TEMP 97.7
--- NOTE | 2023-12-16 15:16 | ED ---
Back Pain HPI - General Source: patient, family, RN notes reviewed Mode of arrival: wheelchair Limitations: no limitations - History of Present Illness MD Complaint: back pain <Lisa Sawyer - Last Filed: 12/16/23 15:15> <Keshawn Torres - Last Filed: 12/16/23 17:39> - General Chief Complaint: Back Pain/Injury Stated Complaint: Back pain Time Seen by Provider: 12/16/23 15:15 - History of Present Illness Initial Comments: Quick Note: This is a 73-year-old male who presents to the emergency department for back pain. States that it started this morning. Pain is in the center of the lower back above the tailbone area. Denies any injuries. Denies any loss of bowel/bladder control or saddle anesthesia. (Lisa Sawyer) 73-year-old male presenting to the ED with a chief complaint of back pain. Patient states last night/this morning onset of right lower/middle lower back pain. No injury or trauma. Reports pain is worse with movement especially twisting of the torso. Denies bowel or bladder incontinence. Denies saddle anesthesia. Denies urinary symptoms. Denies weakness. No chest pain or shortness of breath. No fever or chills. No other complaints at this time. (Keshawn Torres) - Related Data Home Medications Medication Instructions Recorded Confirmed Empagliflozin [Jardiance] 10 mg PO DAILY 01/13/22 01/17/22 metFORMIN HCL [Glucophage] 500 mg PO BID 01/13/22 01/17/22 Previous Rx's Medication Instructions Recorded Acetaminophen Tab [Tylenol] 500 mg PO Q6H #40 tablet 12/16/23 Allergies Allergy/AdvReac Type Severity Reaction Status Date / Time No Known Allergies Allergy Verified 01/17/22 08:05 Review of Systems ROS Other: All systems not noted in ROS Statement are negative. <Lisa Sawyer - Last Filed: 12/16/23 15:15> ROS Other: All systems not noted in ROS Statement are negative. <Keshawn Torres - Last Filed: 12/16/23 17:39> ROS Statement: Those systems with pertinent positive or pertinent negative responses have been documented in the HPI. Past Medical History Past Medical History: Blood Disorder, Cancer, Diabetes Mellitus, Thyroid Disorder Additional Past Medical History / Comment(s): HX COLON CANCER, 17 yrs ago. Low Iron. Enlarged thyroid. History of Any Multi-Drug Resistant Organisms: None Reported Past Surgical History: Bowel Resection, Hernia Repair Additional Past Surgical History / Comment(s): SURGERY TO REMOVE COLON CANCER, COLONOSCOPIES, BILATERAL CATARACT SURGERY, Umbilical Hernia Repair. Past Anesthesia/Blood Transfusion Reactions: No Reported Reaction Past Psychological History: No Psychological Hx Reported Smoking Status: Never smoker Past Alcohol Use History: Occasional Past Drug Use History: None Reported - Past Family History Sister(s) Family Medical History: Cancer <Lisa Sawyer - Last Filed: 12/16/23 15:15> General Exam Limitations: no limitations <Lisa Sawyer - Last Filed: 12/16/23 15:15> General appearance: alert, in no apparent distress Eye exam: Present: normal appearance Neck exam: Present: normal inspection Respiratory exam: Present: normal lung sounds bilaterally Cardiovascular Exam: Present: regular rate, normal rhythm GI/Abdominal exam: Present: soft Back exam: Present: other (No midline spinal tenderness to palpation. Right lower lumbar paraspinal tenderness to palpation. Ambulates without difficulty.) Neurological exam: Present: alert, oriented X3 Skin exam: Present: warm, dry <Keshawn Torres - Last Filed: 12/16/23 17:39> - General Exam Comments Initial Comments: Visual Physical Exam Vital signs reviewed General: Well-appearing, nontoxic, no acute distress. Head: Normocephalic, atraumatic Eyes: PERRLA, EOMI ENT: Airway patent Chest: Nonlabored breathing Skin: No visual rash, normal skin tone Neuro: Alert and oriented 3 Musculoskeletal: No gross abnormalities (Lisa Sawyer) Course Vital Signs 12/16/23 15:03 Temperature 97.7 F Pulse Rate 68 Respiratory 16 Rate Blood Pressure 178/83 O2 Sat by Pulse 98 Oximetry Medical Decision Making <Lisa Sawyer - Last Filed: 12/16/23 15:15> <Keshawn Torres - Last Filed: 12/16/23 17:39> - Medical Decision Making I performed the QuickNote portion of this chart. Signed Lisa Sawyer PA-C. (Lisa Sawyer) Was pt. sent in by a medical professional or institution ([facility], [employer], urgent care, hospital, or [facility]...) When possible be specific @ -No Did you speak to anyone other than the patient for history (EMS, parent, family, police, friend...)? What history was obtained from this source @ -No Did you review nursing and triage notes (agree or disagree)? Why? @ -I reviewed and agree with nursing and triage notes Were old charts reviewed (outside hosp., previous admission, EMS record, old EKG, old radiological studies, urgent care reports/EKG's, [facility] records)? Report findings @ -No old charts were reviewed Differential Diagnosis (chest pain, altered mental status, abdominal pain women, abdominal pain men, vaginal bleeding, weakness, fever, dyspnea, syncope, headache, dizziness, GI bleed, back pain, seizure, CVA, palpatations, mental health, musculoskeletal)? @ -Differential Musculoskeletal Muscular strain, contusion, ligament sprain, fracture, arthritis, septic arthritis, bursitis, cellulitis, muscle spasm, nerve compression, DVT, arterial occlusion, herpes zoster, electrolyte abnormality, tumor.... This is not meant to be in all inclusive list EKG interpreted by me (3pts min.). @ -None X-rays interpreted by me (1pt min.). @ -X-ray of the lumbar spine pending at this time. CT interpreted by me (1pt min.). @ -None done U/S interpreted by me (1pt. min.). @ -None done What testing was considered but not performed or refused? (CT, X-rays, U/S, labs)? Why? @ -None What meds were considered but not given or refused? Why? @ -None Did you discuss the management of the patient with other professionals (professionals i.e. I[facility] Simmons, [employer], lab, RT, psych nurse, director of social work, voice professor, teacher, safety and security officer, manager rn case)? Give summary @ -No Was smoking cessation discussed for >3mins.? @ -No Was critical care preformed (if so, how long)? @ -No Were there social determinants of health that impacted care today? How? (Homelessness, low income, unemployed, alcoholism, drug addiction, transportation, low edu. Level, literacy, decrease access to med. care, snf, rehab)? @ -No Was there de-escalation of care discussed even if they declined (Discuss DNR or withdrawal of care, Hospice)? DNR status @ -No What co-morbidities impacted this encounter? (DM, HTN, Smoking, COPD, CAD, Cancer, CVA, ARF, Chemo, Hep., AIDS, mental health diagnosis, sleep apnea, morbid obesity)? @ -None Was patient admitted / discharged? Hospital course, mention meds given and route, prescriptions, significant lab abnormalities, going to OR and other pertinent info. @ -Discharge 73-year-old male presenting to the ED with complaints of back pain starting last night/this morning without injury or trauma. No saddle anesthesia. No incontinence. No weakness. No urinary symptoms. On exam reproducible right lower lumbar paraspinal tenderness to palpation. X-ray of the lumbar spine was performed however at this time patient and family would like to go home. Advised on the importance of staying until x-ray results however they both state that they would like to go home. Reports that they will follow-up with their PCP tomorrow. Discussed strict return parameters with patient and family who verbalized agreement. Undiagnosed new problem with uncertain prognosis? @ -No Drug Therapy requiring intensive monitoring for toxicity (Heparin, Nitro, Insulin, Cardizem)? @ -No Were any procedures done? @ -No Diagnosis/symptom? @ -Back pain Acute, or Chronic, or Acute on Chronic? @ -Acute Uncomplicated (without systemic symptoms) or Complicated (systemic symptoms)? @ -Uncomplicated Side effects of treatment? @ -No Exacerbation, Progression, or Severe Exacerbation? @ -No Poses a threat to life or bodily function? How? (Chest pain, [place], [place], pneumonia, PE, COPD, DKA, ARF, appy, cholecystitis, CVA, Diverticulitis, Homicidal, Suicidal, threat to staff... and all critical care pts) @ -No (Keshawn Torres) Disposition <Lisa Sawyer - Last Filed: 12/16/23 15:15> Is patient prescribed a controlled substance at d/c from ED?: No Time of Disposition: 17:38 <Keshawn Torres - Last Filed: 12/16/23 17:39> Clinical Impression: Back pain Disposition: HOME SELF-CARE Condition: Good Instructions (If sedation given, give patient instructions): Acute Low Back Pain (ED) Additional Instructions: Please return to the Emergency Department if symptoms worsen or any other concerns. Please follow-up with your PCP. Prescriptions: Acetaminophen Tab [Tylenol] 500 mg PO Q6H #40 tablet Referrals: Eugene Lay DO [Primary Care Provider] - 1-2 days
[2023-12-16] MEDS: CYCLOBENZAPRINE 10 MG TAB PO STA (17:53)
[2023-12-16] MEDS: ACETAMINOPHEN TAB 500 MG TAB PO STA (17:53)
[2023-12-16] MEDS: CYCLOBENZAPRINE 10MG STARTER 3 TAB BTL PO STA (17:53)
[2023-12-16 18:28] VITALS: BP 154/78; PULSE 78; RESP 15
--- NOTE | 2023-12-16 18:49 | XR ---
EXAMINATION TYPE: XR lumbar spine 2 or 3V DATE OF EXAM: 12/16/2023 3:27 PM CLINICAL INDICATION:Male, 73 years old with history of Pain; [facility] COMPARISON: None TECHNIQUE: Frontal, lateral and coned in L5-S1 lateral views of the spine. FINDINGS: No evidence of any acute osseous pathology. No evidence of loss of vertebral body height i s seen. Grade 1 anterolisthesis of L4 on L5. Mild scattered disc space narrowing. Multilevel marginal osteophyte formation throughout the visualized spine. There is facet joint arthropathy throughout th e spine. Scattered at least mild neural foraminal stenosis. IMPRESSION: 1. No acute fracture. 2. Mild to moderate multilevel disc degeneration.
== END 2023-12-16 18:05 | disposition home or self-care (01) ==
LOC: EC 14:53
DX: M51.36 Other intervertebral disc degeneration, lumbar region (principal)
CPT/HCPCS: 72100; 99283

== ENCOUNTER → 2024-11-05 | Outpatient (CLI) | payer MEDICARE ==
[2024-11-05 15:02] LABS: HCT 49.8 % (39.6-50.0); HGB 15.9 g/dL (13.0-17.0); MCH 26.6 pg (27.0-32.0); MCHC 31.9 g/dL (32.0-37.0); MCV 83.4 FL (80.0-97.0); Mean Platelet Volume 12.2 FL (9.5-12.2); NRBC Per 100 WBC 0 X 10*3/uL (0.00-0.01); Platelet Count 173 X 10*3/uL (140-440); RBC 5.97 X 10*6/uL (4.40-5.60); RDW 13.5 % (11.5-14.5); WBC 5.64 X 10*3/uL (4.50-10.00)
[2024-11-05 15:52] LABS: ALT 20 U/L (10-49); AST 19 U/L (14-35); Albumin 4.4 g/dL (3.8-4.9); Albumin/Globulin Ratio 1.76 Ratio (1.60-3.17); Alkaline Phosphatase 75 U/L (41-126); BUN/Creat Ratio 18.44 Ratio (12.00-20.00); Bilirubin, Conjugated <0.20 mg/dL (0.20-0.40); Bilirubin,Unconjugated >0.30 mg/dL (0.20-1.00); Blood Urea Nitrogen 16.6 mg/dL (9.0-27.0); Calcium 9.4 mg/dL (8.7-10.3); Chloride 102 mmol/L (96-109); Chol/HDL Ratio 3.28 Ratio; Globulin 2.5 g/dL (1.6-3.3); Glucose 194 mg/dL (70-110); LDL Cholesterol,Calculated 113.1 mg/dL (0.0-131.0); Potassium 4.6 mmol/L (3.5-5.5); Prostate Specific Antigen 1.15 ng/mL (0.000-6.500); Sodium 142 mmol/L (135-145); Total Bilirubin 0.5 mg/dL (0.3-1.2); Total Protein 6.9 g/dL (6.2-8.2)
[2024-11-05 16:50] LABS: Appearance,Urine Clear (Clear); Bilirubin,Urine Negative (Negative); Blood,Urine Negative (Negative); Color,Urine Yellow (Yellow); Ketones,Urine 15 (Negative); Nitrite,Urine Negative (Negative); Specific Gravity,Urine >1.035 (1.001-1.030); Urobilinogen,Urine 0.2
[2024-11-05 17:39] LABS: Microalbumin Creatinine Ratio <19 mg/g Cr (0-30); Urine Creatinine 64.7 mg/dL (39.0-259.0)
== END | disposition home or self-care (01) ==
LOC: LABWHC1 09:44
PROVIDERS: ATTEND Family Medicine
DX: E11.65 Type 2 diabetes mellitus with hyperglycemia (principal); E04.1 Nontoxic single thyroid nodule; E55.9 Vitamin D deficiency, unspecified; N40.0 Benign prostatic hyperplasia without lower urinary tract symptoms
CPT/HCPCS: 36415; 80048; 80061; 80076; 81003; 82043; 82306; 82570; 83036; 84153; 84443; 85027